=== PATIENT | female | born 1980 | race Two or more races ===

== ENCOUNTER 2017-12-20 08:38 | Outpatient (CLI) | payer OTHER ==
[~2017-12-20 08:38] MED LIST: OXYC1TAB9 PO; TRANDATE200 MG PO
== END 2017-12-20 08:46 | disposition home or self-care (01) ==
LOC: LAB 08:38
DX: E22.1 Hyperprolactinemia (principal)

== ENCOUNTER 2018-03-21 08:56 | Outpatient (CLI) | payer OTHER | END 2018-03-21 09:08 | disposition home or self-care (01) | LOC: SONOGRAMA 08:56 | DX: R10.2 Pelvic and perineal pain (principal); N92.6 Irregular menstruation, unspecified; N83.299 Other ovarian cyst, unspecified side ==

== ENCOUNTER → 2018-03-26 | Outpatient (CLI) | payer OTHER | END | disposition home or self-care (01) | LOC: LAB 08:25 | DX: E22.1 Hyperprolactinemia (principal) ==

== ENCOUNTER 2018-04-04 09:33 | Outpatient (CLI) | payer OTHER | END 2018-04-04 15:59 | disposition home or self-care (01) | LOC: MRI 09:33 | DX: E22.1 Hyperprolactinemia (principal) | CPT/HCPCS: 70552 ==

== ENCOUNTER 2018-04-10 08:42 | Outpatient (CLI) | payer OTHER | END 2018-04-10 08:49 | disposition home or self-care (01) | LOC: LAB 08:42 | DX: R79.89 Other specified abnormal findings of blood chemistry (principal); R19.00 Intra-abdominal and pelvic swelling, mass and lump, unspecified site ==

== ENCOUNTER 2018-05-01 08:46 | Outpatient (CLI) | payer OTHER | END 2018-05-01 08:50 | disposition home or self-care (01) | LOC: LAB 08:46 | DX: I10 Essential (primary) hypertension (principal); Z13.220 Encounter for screening for lipoid disorders; Z13.29 Encounter for screening for other suspected endocrine disorder ==

== ENCOUNTER → 2018-08-27 | Outpatient (CLI) | payer OTHER | END | disposition home or self-care (01) | LOC: MAMO-SONO 09:09 | DX: Z12.31 Encounter for screening mammogram for malignant neoplasm of breast (principal); N61.0 Mastitis without abscess ==

== ENCOUNTER 2018-09-19 09:00 | Outpatient (CLI) | payer OTHER | END 2018-09-19 09:13 | disposition home or self-care (01) | LOC: SONOGRAMA 09:00 | DX: N94.89 Other specified conditions associated with female genital organs and menstrual cycle (principal) ==

== ENCOUNTER 2018-10-22 10:19 | Outpatient (CLI) | payer OTHER | END 2018-10-22 10:20 | disposition home or self-care (01) | LOC: SONOGRAMA 10:19 → MAMO-SONO 10:45 | DX: I10 Essential (primary) hypertension (principal); N28.89 Other specified disorders of kidney and ureter ==

== ENCOUNTER 2018-10-23 09:17 | Outpatient (CLI) | payer OTHER | END 2018-10-23 09:20 | disposition home or self-care (01) | LOC: LAB 09:17 | DX: E22.1 Hyperprolactinemia (principal); E89.0 Postprocedural hypothyroidism ==